=== PATIENT | female | born 1990 | race Caucasian/White ===

== ENCOUNTER → 2020-07-18 16:31 | Outpatient (CLI) | payer OTHER, SELFPAY ==
[2020-07-18 17:06] LABS: Add Manual Diff / Slide Review NO; Basophils Absolute Auto 0 /uL (0-100); Basophils Percent Auto 0.4 % (0-2); Eosinophils Absolute Auto 0 /uL (0-450); Eosinophils Percent Auto 0.4 % (2-4); Hematocrit 37.7 % (36-46); Hemoglobin 12.9 g/dL (12.0-16.0); Lymphocytes Absolute Auto 2500 /uL (1100-4500); Mean Corpuscular HGB Conc 34.3 % (30-36); Mean Corpuscular Hemoglobin 31.4 PG (26-34); Mean Corpuscular Volume 91.5 fL (80-100); Monocytes Absolute Auto 600 /uL (0-900); Monocytes Percent Auto 6.6 % (3-14); Neutrophils Absolute Auto 5700 /uL (1500-7000); Neutrophils Percent Auto 64.6 % (50-75); Platelet Count 278 X10^3/uL (150-400); Red Blood Cell Count 4.13 X10^6/uL (4.0-5.2); Red Cell Distribution Width 12.4 % (11.6-14.8); White Blood Cell Count 8.8 X10^3/uL (4.5-11.0)
[2020-07-18 17:31] LABS: Alanine Aminotransferase 21 IU/L (<35); Albumin 4.3 g/dL (3.5-5.0); Albumin Globulin Ratio 1.4 (1.0-2.8); Alkaline Phosphatase 30 U/L (38-126); Aspartate Aminotransferase 34 IU/L (14-36); BUN Creatinine Ratio 16.7 (6-22); Bilirubin Total 1.7 mg/dL (0.2-1.3); Blood Urea Nitrogen 15 mg/dL (7-17); Calcium 9.4 mg/dL (8.4-10.2); Carbon Dioxide 26 mmol/L (22-32); Chloride 104 mmol/L (98-107); Cholesterol 189 mg/dL (140-199); Estimated Glomerular Filt Rate > 60.0 mL/min (>60); Globulin 3.1 g/dL (1.7-4.1); Glucose 78 mg/dL (70-100); HDL Cholesterol 78 mg/dL (40-60); HEMOLYSIS < 15 (0-50); LDL Cholesterol Calculated 100 mg/dL (<100); Sodium 134 mmol/L (137-145); Total Protein 7.4 g/dL (6.3-8.2); Triglycerides 55 mg/dL (35-150)
[2020-07-18 18:16] LABS: Thyroid Stimulating Hormone 1.14 uIU/mL (0.47-4.68)
== END ==
PROVIDERS: PCP Registered Nurse; Referring Provider Registered Nurse; Visit Provider Registered Nurse
DX: R53.83 Other fatigue (principal); Z79.899 Other long term (current) drug therapy
CPT/HCPCS: 36415; 80053; 80061; 84439; 84443; 85025

== ENCOUNTER → 2020-10-24 15:16 | Outpatient (CLI) | payer OTHER, SELFPAY ==
[2020-10-24 16:24] LABS: Alanine Aminotransferase 19 IU/L (<35); Albumin 4.3 g/dL (3.5-5.0); Albumin Globulin Ratio 1.4 (1.0-2.8); Alkaline Phosphatase 35 U/L (38-126); Aspartate Aminotransferase 30 IU/L (14-36); BUN Creatinine Ratio 16.1 (6-22); Bilirubin Total 1.1 mg/dL (0.2-1.3); Blood Urea Nitrogen 15 mg/dL (7-17); Calcium 9.5 mg/dL (8.4-10.2); Carbon Dioxide 24 mmol/L (22-32); Chloride 103 mmol/L (98-107); Estimated Glomerular Filt Rate > 60.0 mL/min (>60); Globulin 3.1 g/dL (1.7-4.1); Glucose 95 mg/dL (70-100); HEMOLYSIS < 15 (0-50); Potassium 4.1 mmol/L (3.4-5.1); Sodium 136 mmol/L (137-145); Total Protein 7.4 g/dL (6.3-8.2)
[2020-10-24 16:41] LABS: Vitamin D 25 Hydroxy (D3) 50.4 ng/mL (30.0-100.0)
== END ==
PROVIDERS: PCP Family Medicine; Referring Provider Family Medicine; Visit Provider Family Medicine
DX: R53.83 Other fatigue (principal); Z87.42 Personal history of other diseases of the female genital tract
CPT/HCPCS: 36415; 80053; 82248; 82306

== ENCOUNTER → 2020-10-31 09:15 | Outpatient (CLI) | payer OTHER, SELFPAY | PROVIDERS: PCP Family Medicine; Visit Provider Student in an Organized Health Care Education/Training Program | DX: N34.3 Urethral syndrome, unspecified (principal) | CPT/HCPCS: 87077; 87086; 87186 ==

== ENCOUNTER → 2020-11-09 13:30 | Outpatient (CLI) | payer OTHER, SELFPAY | PROVIDERS: PCP Family Medicine; Referring Provider Physician Assistant; Visit Provider Physician Assistant | DX: N30.01 Acute cystitis with hematuria (principal) | CPT/HCPCS: 87077; 87086; 87186 ==

== ENCOUNTER → 2021-02-11 13:01 | Outpatient (CLI) | payer OTHER, SELFPAY ==
[2021-02-11 15:59] LABS: COVID19 -Nasal RAPID Negative (Negative)
== END ==
PROVIDERS: PCP Registered Nurse Diabetes Educator; Visit Provider Nurse Practitioner Family
DX: Z20.822 Contact with and (suspected) exposure to COVID-19 (principal)
CPT/HCPCS: 87635

== ENCOUNTER → 2021-04-17 15:34 | Outpatient (CLI) | payer OTHER, SELFPAY ==
--- NOTE | 2021-04-17 15:35 | DI.MRI.S_ITS ---
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 COMPARISON: None. FINDINGS: Image quality: Excellent. CSF Spaces: Basal cisterns are patent. No extra-axial fluid collections. Ventricles are normal in size and shape. Brain: No intracranial masses or hemorrhage. Amezcua/white matter interface is normal. Brainstem appears normal. Diffusion-weighted images demonstrate no acute ischemic insult. No chronic ischemic insults. Normal intravascular flow voids are present. Skull and face: Calvarium has normal marrow signal. Orbits appear normal. Sinuses: Sinuses and mastoids are clear. IMPRESSION: Normal MRI of the brain Approved by: Bernardo Tam M.D. on 04/17/2021 at 17:21
== END ==
PROVIDERS: PCP Registered Nurse Diabetes Educator; Referring Provider Registered Nurse Diabetes Educator; Visit Provider Registered Nurse Diabetes Educator
DX: G43.109 Migraine with aura, not intractable, without status migrainosus (principal); R29.818 Other symptoms and signs involving the nervous system
CPT/HCPCS: 70551

== ENCOUNTER → 2021-06-20 16:28 | Outpatient (CLI) | payer OTHER, SELFPAY ==
--- NOTE | 2021-06-20 16:30 | DI.RAD.S_ITS ---
PROCEDURE: XR LUMBAR SPINE 2-3V INDICATIONS: chronic LBP TECHNIQUE: 3 views of the lumbar spine were acquired. COMPARISON: None. FINDINGS: Bones: 5 [id number] vertebrae are present. There is normal bony alignment. No vertebral body compression fractures. No suspicious bony lesions. Soft tissues: Overlying bowel gas pattern is normal. No suspicious soft tissue calcifications. IMPRESSION: No acute abnormality. Dictated by: Jarad Peña M.D. on 06/20/2021 at 16:56 Approved by: Jarad Peña M.D. on 06/20/2021 at 16:57
== END ==
PROVIDERS: PCP Registered Nurse Diabetes Educator; Referring Provider Registered Nurse Diabetes Educator; Visit Provider Registered Nurse Diabetes Educator
DX: G89.29 Other chronic pain (principal); M54.50 Low back pain, unspecified
CPT/HCPCS: 72100

== ENCOUNTER → 2021-07-31 08:04 | Outpatient (CLI) | payer OTHER, SELFPAY ==
--- NOTE | 2021-07-31 | DI.MRI.S_ITS ---
PROCEDURE: MR LUMBAR SPINE WO CON INDICATIONS: Low back pain, unspecified TECHNIQUE: Noncontrast sagittal T1 spin echo and T2 fast echo, sagittal STIR, axial T1 and T2 fast spin echo through the lumbar spine. In cases with scoliosis, additional coronal T2 fast spin echo may be performed. COMPARISON: None. FINDINGS: Image quality: Excellent. Alignment and Curvature: There is normal bony alignment. Bone Marrow: Marrow is of normal overall signal. No acute vertebral body compression fractures. Spinal Cord: Conus medullaris terminates at the L1 level. Visualized cord demonstrates normal signal and size. Paraspinous Soft Tissues: No paravertebral masses. T12-L1: Normal appearance. L1-L2: Normal appearance. L2-L3: Normal appearance. L3-L4: Normal appearance. L4-L5: Normal appearance. L5-S1: Normal appearance. IMPRESSION: Unremarkable MRI of the lumbar spine. No central or foraminal stenosis throughout the exam. No paraspinal mass. Approved by: Bernardo Tam M.D. on 07/31/2021 at 10:54
== END ==
PROVIDERS: PCP Registered Nurse Diabetes Educator; Referring Provider Physical Medicine & Rehabilitation Pain Medicine; Visit Provider Physical Medicine & Rehabilitation Pain Medicine
DX: M54.50 Low back pain, unspecified (principal)
CPT/HCPCS: 72148

== ENCOUNTER → 2021-09-23 13:13 | Outpatient (CLI) | payer OTHER, SELFPAY ==
[2021-09-23 14:00] LABS: Appearance Urine UA SL CLOUDY; Bilirubin Urine UA NEGATIVE (NEGATIVE); Color Urine UA YELLOW; Glucose Urine UA NEGATIVE (Negative); Ketones Urine UA NEGATIVE (NEGATIVE); Leukocyte Esterase Urine UA 1+ (NEGATIVE); Nitrite Urine UA NEGATIVE (Negative); Occult Blood Urine UA NEGATIVE (Negative); Protein Urine UA NEGATIVE (Negative); Specific Gravity Urine UA <=1.005 (1.000-1.035); Urobilinogen Urine UA 0.2 E.U./dL (0.2)
[2021-09-23 14:01] LABS: pH Urine UA 6.5 (4.5-8.0)
[2021-09-23 14:05] LABS: RBC Urine None Seen (0-5/HPF); WBC Urine 5-10/HPF (0-5/HPF)
[2021-09-23 14:06] LABS: Bacteria Urine None Seen; Culture Indicated Urine Cult Not Indicated; Squamous Epithelial Cell Urine 5-10 /HPF (0-5/HPF)
[2021-09-23 14:30] LABS: Alanine Aminotransferase 34 IU/L (<35); Albumin 4.6 g/dL (3.5-5.0); Albumin Globulin Ratio 1.5 (1.0-2.8); Alkaline Phosphatase 37 U/L (38-126); Aspartate Aminotransferase 35 IU/L (14-36); BUN Creatinine Ratio 18.1 (6-22); Bilirubin Total 1.2 mg/dL (0.2-1.3); Blood Urea Nitrogen 15 mg/dL (7-17); Calcium 9.6 mg/dL (8.4-10.2); Carbon Dioxide 27 mmol/L (22-32); Chloride 103 mmol/L (98-107); Estimated Glomerular Filt Rate > 60 mL/min (>60); Glucose 87 mg/dL (70-100); HEMOLYSIS < 15 (0-50); Potassium 4.4 mmol/L (3.4-5.1); Sodium 136 mmol/L (137-145); Total Protein 7.6 g/dL (6.3-8.2)
[2021-09-23 16:00] LABS: Microalbumin Urine Random < 0.6 mg/dL (0-1.6)
[2021-09-23 16:22] LABS: Hepatitis B Surface Antigen NEGATIVE s/c (NEGATIVE)
[2021-09-23 16:40] LABS: Hep C Virus Ab w/Reflex Quant NEGATIVE s/c (NEGATIVE)
[2021-09-24 03:59] LABS: Hepatitis B Core AB w/Reflex Negative (Negative)
== END ==
PROVIDERS: PCP Registered Nurse Diabetes Educator; Referring Provider Registered Nurse Diabetes Educator; Visit Provider Registered Nurse Diabetes Educator
DX: R74.8 Abnormal levels of other serum enzymes (principal); R94.4 Abnormal results of kidney function studies
CPT/HCPCS: 36415; 80053; 81001; 82043; 82570; 86704; 86803; 87340

== ENCOUNTER → 2022-02-17 16:42 | Outpatient (CLI) | payer OTHER, SELFPAY ==
--- NOTE | 2022-02-17 16:44 | DI.US.S_ITS ---
PROCEDURE: US PELVIC COMPLETE INDICATIONS: ABNORMAL MENSES. HISTORY OF OVARIAN CYSTS. TECHNIQUE: Real-time scanning was performed of the pelvic organs, with image documentation. Additional endovaginal scanning was necessary due to incomplete visualization of the adnexal and endometrial structures by transabdominal scanning. COMPARISON: None. FINDINGS: Uterus: Uterus is retroverted and normal in size at 7.7 x 5.8 x 4.1 cm. The myometrium is homogeneous. The endometrium measures 8 mm combined thickness. Arcuate uterine morphology is noted. Ovaries: The right ovary is surgically absent. The left ovary measures 4.8 x 3.3 x 3.1 cm, with a calculated ovarian volume of 25.5 cc. There is a dominant follicle measuring 2.6 cm. There is a complicated ovarian cyst with layering debris and no abnormal vascularity measuring 2.0 cm. Additionally, there is a moderately distended tubular structure within the left adnexal region with internal septations and debris and increased vascularity. There is also moderate amount of adjacent free fluid within the region of the left adnexa and posterior cul-de-sac. This finding measures approximately 6.3 x 2.2 x 2.2 cm. IMPRESSION: 1. A prominent tubular structure in the left adnexal region with internal septations and debris and mild vascularity. Findings may represent hydrosalpinx although early pyosalpinx not excluded given presence of adjacent pelvic free fluid. Recommend clinical correlation and follow-up imaging as indicated. 2. Unremarkable left ovary with dominant follicle and a minimally complicated ovarian cyst. 3. Status post right oophorectomy. 4. Arcuate uterine morphology reportedly known to the patient. We strive to produce accurate, complete, and clear reports of imaging services. To assist us in improving patient care, this report was composed using standard report templates and voice recognition software. Therefore, it may contain abnormal punctuation, insertions and/or omissions. Occasional wrong-word or sound-alike substitutions may occur. Though we review the report and make efforts to correct it, we do recommend that the report be read carefully in proper context to recognize any text inaccuracies. Dictated by: Vernon Gutiérrez M.D. on 02/17/2022 at 18:22 Approved by: Vernon Gutiérrez M.D. on 02/17/2022 at 18:28
== END ==
PROVIDERS: PCP Registered Nurse Diabetes Educator; Referring Provider Physician Assistant Medical; Visit Provider Physician Assistant Medical
DX: N92.6 Irregular menstruation, unspecified (principal); Z87.42 Personal history of other diseases of the female genital tract
CPT/HCPCS: 76830; 76856

== ENCOUNTER → 2022-02-27 15:20 | Outpatient (CLI) | payer OTHER, SELFPAY ==
[2022-02-27 18:38] LABS: Urine N gonorrhoeae NOT DETECTED
[2022-02-27 18:39] LABS: Urine Chlamydia NOT DETECTED
== END ==
PROVIDERS: PCP Registered Nurse Diabetes Educator; Referring Provider Physician Assistant Medical; Visit Provider Physician Assistant Medical
DX: Z11.3 Encounter for screening for infections with a predominantly sexual mode of transmission (principal)
CPT/HCPCS: 87491; 87591

== ENCOUNTER → 2022-05-14 14:05 | Outpatient (CLI) | payer OTHER, SELFPAY ==
[2022-05-14 16:06] LABS: Cholesterol 209 mg/dL (140-199); HDL Cholesterol 90 mg/dL (40-60); LDL Cholesterol Calculated 104 mg/dL (<100); Triglycerides 74 mg/dL (35-150)
[2022-05-14 16:24] LABS: Follicle Stimulating Hormone 2.27 mIU/mL; Progesterone, Total 9.36 ng/mL
[2022-05-14 16:40] LABS: Testosterone 25.5 ng/dL (5.71-77.0)
[2022-05-15 07:09] LABS: RPR Screen Non Reactive (Non Reactive)
[2022-05-15 09:24] LABS: Rubeola Measles IgG 61.3 AU/mL (Immune >16.4)
[2022-05-15 16:38] LABS: Hep C Virus Ab w/Reflex Quant NEGATIVE s/c (NEGATIVE); Rubella Antibody IgG 27.5 IU/mL (>15)
[2022-05-16 11:36] LABS: Mumps Virus IgG Antibody 11.4 AU/mL (Immune >10.9)
[2022-05-17 12:36] LABS: Hepatitis B Virus HBV DNA not detected IU/mL (.)
[2022-05-23 16:41] LABS: Anti Mullerian Hormone 4.67 ng/mL (.)
== END ==
PROVIDERS: PCP Registered Nurse Diabetes Educator; Referring Provider Registered Nurse Diabetes Educator; Visit Provider Registered Nurse Diabetes Educator
DX: Z31.41 Encounter for fertility testing (principal)
CPT/HCPCS: 36415; 80061; 82397; 83001; 84144; 84403; 86592; 86735; 86762; 86765; 86803; 86900; 86901

== ENCOUNTER → 2022-05-30 12:55 | Outpatient (CLI) | payer OTHER, SELFPAY ==
--- NOTE | 2022-05-30 12:56 | DI.RAD.S_ITS ---
PROCEDURE: HL HYSTEROSAPINGOGRAPHY INDICATIONS: Infertility COMPARISON: [facility], , PELVIC COMPLETE, 02/17/2022, 16:59. FINDINGS: Patient had a documented negative test prior to the study. Following speculum insertion, a balloon-tip catheter was inserted into the cervical canal, and secured by inflating the balloon. Contrast was then injected into the endometrial canal. Uterus: The uterine cavity appears normal in size and morphology, without synechiae or masses. Portions of the lower uterus are obscured by catheter balloon. Fallopian tubes: Right fallopian tube has been surgically removed. Left fallopian tube fills with contrast, and appears normal in caliber and morphology. There is ready dispersion of contrast into the peritoneal cavity. IMPRESSION: Status post right salpingectomy. Left lobe in tube is patent. Approved by: Ranjeet Kim M.D. on 05/30/2022 at 14:08
--- NOTE | 2022-05-31 11:14 | PM.PROC.1 ---
Procedures Date/Time Date of procedure: 05/30/22 Time of procedure: 13:10 General Procedure description: Hysterosalpingogram After informed consent was obtained, the patient was placed on the fluoroscopy table with her bottom on an overturned bedpan. A bivalve speculum was placed into the vagina. A single-tooth tenaculum was placed on the anterior lip of the cervix. The cervix was cleaned x3 with Betadine. An attempt to place the HSG catheter was unsuccessful. The cervix was dilated with a gradual dilator. The HSG catheter then passed easily into the endometrial cavity. 3 cc of air were placed into the balloon. Approximately 15 cc of Isovue-[id number] were injected into the HSG catheter. Under direct fluoroscopic examination the uterine cavity was visualized with arcuate nature at the fundus. There was immediate fill and then spill of the left tube. The right tube had previously been removed. The remainder of the dye was removed from the uterus with aspiration. The balloon of the HSG catheter was deflated and the HSG catheter removed. The single-tooth tenaculum was removed from the anterior lip of the cervix. The bivalve speculum was removed from the vagina. The patient tolerated the procedure well. Complications: none
== END ==
PROVIDERS: PCP Registered Nurse Diabetes Educator; Referring Provider Obstetrics & Gynecology; Visit Provider Obstetrics & Gynecology
DX: N97.9 Female infertility, unspecified (principal); Z90.79 Acquired absence of other genital organ(s)
CPT/HCPCS: 58340; 74740

== ENCOUNTER → 2022-06-06 08:43 | Outpatient (CLI) | payer OTHER, SELFPAY ==
--- NOTE | 2022-06-06 09:10 | DI.US.S_ITS ---
PROCEDURE: US PELVIC COMPLETE INDICATIONS: LEFT HYDROSALPINX TECHNIQUE: Real-time scanning was performed of the pelvic organs, with image documentation. Additional endovaginal scanning was necessary due to incomplete visualization of the adnexal and endometrial structures by transabdominal scanning. COMPARISON: [facility], , US PELVIC COMPLETE, 02/17/2022, 16:59. FINDINGS: Uterus: Uterus is retroverted and normal in size at 7.7 x 5.5 x 3.9 cm. The myometrium is homogeneous. The endometrium measures 11.8 mm combined thickness. Mild arcuate uterus. Endocervical fluid noted Ovaries: Right oophorectomy. Left ovary measures 4.8 x 3.6 x 2.6 cm, 23.4 cc. Dominant left ovarian follicle measures 2.2 cm. Other: [id number] bilateral adnexal free fluid. Previously described tubular structure nonvisualized IMPRESSION: Mild to moderate free fluid noted in the pelvis. Previously described tubular fluid-filled structure not identified Approved by: Bernardo Tam M.D. on 06/06/2022 at 15:36
== END ==
PROVIDERS: PCP Registered Nurse Diabetes Educator; Referring Provider Registered Nurse Diabetes Educator; Visit Provider Registered Nurse Diabetes Educator
DX: N70.11 Chronic salpingitis (principal)
CPT/HCPCS: 76830; 76856

== ENCOUNTER → 2023-06-03 14:09 | Outpatient (CLI) | payer OTHER, SELFPAY ==
[2023-06-03 15:42] LABS: HEMOLYSIS < 15 (0-50); Iron 78 ug/dL (37-170)
[2023-06-03 15:53] LABS: Percent Iron Saturation 24 % (15-50); Total Iron Binding Capacity 327 ug/dL (265-497); Transferrin 288 mg/dL (206-381)
[2023-06-03 16:19] LABS: Ferritin 11 ng/mL (6-137)
== END ==
PROVIDERS: PCP Registered Nurse Diabetes Educator; Referring Provider Registered Nurse Diabetes Educator; Visit Provider Registered Nurse Diabetes Educator
DX: L65.0 Telogen effluvium (principal); Z83.2 Family history of diseases of the blood and blood-forming organs and certain disorders involving the immune mechanism
CPT/HCPCS: 36415; 82728; 83540; 83550

== ENCOUNTER → 2023-08-12 10:11 | Outpatient (CLI) | payer OTHER, SELFPAY ==
[2023-08-12 10:59] LABS: Hematocrit 37.6 % (36-46); Hemoglobin 13.3 g/dL (12.0-16.0); Mean Corpuscular HGB Conc 35.3 % (30-36); Mean Corpuscular Volume 87.8 fL (80-100); Platelet Count 286 X10^3/uL (150-400); Red Blood Cell Count 4.29 X10^6/uL (4.0-5.2); Red Cell Distribution Width 13.2 % (11.6-14.8); White Blood Cell Count 8.3 X10^3/uL (4.5-11.0)
[2023-08-12 11:36] LABS: HEMOLYSIS < 15 (0-50); Iron 97 ug/dL (37-170)
[2023-08-12 11:47] LABS: Percent Iron Saturation 31 % (15-50); Total Iron Binding Capacity 309 ug/dL (265-497); Transferrin 267 mg/dL (206-381)
[2023-08-12 12:04] LABS: Ferritin 13 ng/mL (6-137)
== END ==
LOC: LAB 10:13
PROVIDERS: PCP Registered Nurse Diabetes Educator; Referring Provider Registered Nurse Diabetes Educator; Visit Provider Registered Nurse Diabetes Educator
DX: R53.83 Other fatigue (principal); L65.0 Telogen effluvium
CPT/HCPCS: 36415; 82728; 83540; 83550; 85027

== ENCOUNTER → 2023-08-15 13:10 | Outpatient (CLI) | payer OTHER, SELFPAY ==
[2023-08-15 14:13] LABS: Appearance Urine UA CLEAR; Bilirubin Urine UA NEGATIVE (NEGATIVE); Color Urine UA YELLOW; Glucose Urine UA NEGATIVE (Negative); Ketones Urine UA NEGATIVE (NEGATIVE); Leukocyte Esterase Urine UA 1+ (NEGATIVE); Nitrite Urine UA NEGATIVE (Negative); Occult Blood Urine UA 1+ (Negative); Protein Urine UA NEGATIVE (Negative); Specific Gravity Urine UA <=1.005 (1.000-1.035); Urobilinogen Urine UA 0.2 E.U./dL (0.2)
[2023-08-15 14:17] LABS: pH Urine UA 5.5 (4.5-8.0)
[2023-08-15 14:31] LABS: Bacteria Urine Many (>30); Culture Indicated Urine Specimen Cultured; RBC Urine 0-1/HPF (0-5/HPF); Squamous Epithelial Cell Urine 10-30 /HPF (0-5/HPF); Urine Volume 10mL (spun); WBC Urine 1-5/HPF (0-5/HPF)
== END ==
PROVIDERS: PCP Registered Nurse Diabetes Educator; Visit Provider Physician Assistant Medical
DX: R30.0 Dysuria (principal)
CPT/HCPCS: 81001; 87077; 87086; 87186

== ENCOUNTER → 2023-09-14 11:32 | Outpatient (CLI) | payer OTHER, SELFPAY ==
[2023-09-17 09:36] LABS: C1 Esterase Inhibitor 21 mg/dL (21-39)
[2023-09-17 15:41] LABS: C1 Esterase Inhibitor, Func >110 (.)
== END ==
PROVIDERS: PCP Registered Nurse Diabetes Educator; Referring Provider Registered Nurse Diabetes Educator; Visit Provider Registered Nurse Diabetes Educator
DX: D84.1 Defects in the complement system (principal)
CPT/HCPCS: 36415; 86160; 86161

== ENCOUNTER → 2023-10-09 09:36 | Outpatient (CLI) | payer OTHER, SELFPAY | PROVIDERS: PCP Registered Nurse Diabetes Educator; Visit Provider Nurse Practitioner Family | DX: R30.0 Dysuria (principal) | CPT/HCPCS: 87077; 87086; 87186 ==

== ENCOUNTER → 2023-10-09 09:51 | Outpatient (CLI) | payer OTHER, SELFPAY ==
[2023-10-09 10:54] LABS: Glucose 95 mg/dL (70-100)
[2023-10-09 11:10] LABS: Follicle Stimulating Hormone 3.56 mIU/mL; Luteinizing Hormone 9.66 mIU/mL
== END ==
LOC: LAB 09:52
PROVIDERS: PCP Registered Nurse Diabetes Educator; Referring Provider Registered Nurse Diabetes Educator; Visit Provider Registered Nurse Diabetes Educator
DX: E88.819 Insulin resistance, unspecified (principal); E28.2 Polycystic ovarian syndrome; R30.0 Dysuria
CPT/HCPCS: 36415; 82947; 83001; 83002; 83525; 87077; 87086; 87186